=== PATIENT | male | born 1955 | race Caucasian/White ===

== ENCOUNTER 2016-10-11 03:05 | Emergency (ER) | payer OTHER ==
[~2016-10-11] VITALS: Ht 180.3 cm; Wt 104.3 kg
--- NOTE | 2016-10-11 03:20 | ED GI/GU/ABDOMINAL COMPLAINT ---
History of Present Illness General Chief Complaint: Abdominal Pain/Flank Pain Stated Complaint: LOWER ABD PAIN, FEVER, CHILLS, X 1 DAY Source: patient, family Exam Limitations: no limitations Vital Signs & Intake/Output Vital Signs & Intake/Output Vital Signs Date Time Temp Pulse Resp B/P B/P Pulse O2 O2 Flow FiO2 Mean Ox Delivery Rate 10/11 0404 96 Room Air 10/11 0316 97.5 80 18 127/75 95 Allergies Coded Allergies: cephalexin (From KEFLEX) (itchy 10/11/16) Reconcile Medications No Known Home Medications Triage Note: lower abd pain denies n,v,d normal bm DENIES URINARY SX Triage Nurses Notes Reviewed? yes HPI: Patient has had bilateral lower quadrant crampy pain since yesterday. The pain is escalating. Patient rates the pain at 7 out of 10. The pain is exacerbated with any movement or with walking. There is no nausea, vomiting, constipation or diarrhea. Patient had a normal bowel movement earlier today. Patient has noticed that his urine is darker than normal. There are no fevers or chills. The pain is constant. Patient also states that yesterday he had some chills but no fever that he is aware of. Past History Travel History Traveled to [place] past 21 day No Medical History Any Pertinent Medical History? none Neurological: NONE EENT: NONE Cardiovascular: NONE Respiratory: NONE Gastrointestinal: NONE Hepatic: NONE Renal: NONE Musculoskeletal: NONE Psychiatric: NONE Endocrine: NONE Blood Disorders: NONE Cancer(s): NONE Surgical History Surgical History: non-contributory Psychosocial History What is your primary language Khmer Tobacco Use: Never used ETOH Use: occasional use Illicit Drug Use: denies illicit drug use Family History Hx Contributory? No Review of Systems Review of Systems Constitutional: Reports: see HPI, chills. EENTM: Reports: no symptoms. Respiratory: Reports: no symptoms. Cardiovascular: Reports: no symptoms. GI: Reports: see HPI, abdominal pain. Genitourinary: Reports: see HPI. Musculoskeletal: Reports: no symptoms. Skin: Reports: no symptoms. Neurological/Psychological: Reports: no symptoms. Hematologic/Endocrine: Reports: no symptoms. Immunologic/Allergic: Reports: no symptoms. All Other Systems: Reviewed and Negative Physical Exam Physical Exam General Appearance: well developed/nourished, alert, awake, anxious, moderate distress Head: atraumatic, normal appearance Eyes: Bilateral: PERRL, EOMI. Ears, Nose, Throat, Mouth: hearing grossly normal, moist mucous membrane Neck: normal inspection, supple, full range of motion Respiratory: normal breath sounds, chest non-tender, no respiratory distress, lungs clear Cardiovascular: regular rate/rhythm, normal peripheral pulses Gastrointestinal: normal bowel sounds, soft, guarding, rebound, tenderness Back: normal inspection, normal range of motion Extremities: normal range of motion Neurologic/Psych: no motor/sensory deficits, awake, alert, oriented x 3, normal mood/affect Skin: intact, normal color, warm/dry Core Measures ACS in differential dx? No Severe Sepsis Present: No Septic Shock Present: No Progress Differential Diagnosis: appendicitis, bowel obstruction, diverticulitis, ischemic bowel, inflamm bowel dis, perforated viscous, SBO, urinary retention, UTI/pyelo Plan of Care: Orders Procedure Date/time Status URINALYSIS 10/11 325 Complete LIPASE 10/11 325 Complete COMPREHENSIVE METABOLIC PANEL 10/11 325 Complete CBC WITHOUT DIFFERENTIAL 10/11 325 Complete AMYLASE 10/11 325 Complete Current Medications Sig/Almita Start time Last Medication Dose Stop Time Status Admin Ampicillin Sodium/ 3,000 MG ONCE ONE 10/11 0530 UNVr Sulbactam Sodium 10/11 0559 (Unasyn) Sodium Chloride 100 ML (Normal Saline 0.9%) Laboratory Tests 10/11/16 0353: Anion Gap 10, Estimated GFR > 60, BUN/Creatinine Ratio 16.3, Glucose 191 H, Calcium 9.2, Total Bilirubin 1.0, AST 29, ALT 43, Alkaline Phosphatase 88, Total Protein 6.7, Albumin 4.0, Globulin 2.7, Albumin/Globulin Ratio 1.5, Amylase < 30 L, Lipase 36, CBC w Diff NO MAN DIFF REQ, RBC 4.64 L, MCV 86.8, MCH 30.0, RDW 13.0, MPV 6.8 L, Gran % 74.4, Lymphocytes % 17.0 L, Monocytes % 6.3, Eosinophils % 1.9, Basophils % 0.4, Absolute Granulocytes 8.7 H, Absolute Lymphocytes 2.0, Absolute Monocytes 0.7 H, Absolute Eosinophils 0.2, Absolute Basophils 0, PUBS MCHC 34.5 10/11/16 0346: Urinalysis LIGHT H, Urine Color YEL, Urine Clarity HAZY H, Urine pH 5.5, Ur Specific [place] >= 1.030, Urine Protein 30 H, Urine Ketones NEG, Urine Nitrite NEG, Urine Bilirubin NEG, Urine Urobilinogen 0.2, Ur Leukocyte Esterase NEG, Ur Microscopic SEDIMENT EXAMINED, Urine RBC 1-3, Urine WBC RARE, Ur Epithelial Cells RARE, Urine Bacteria FEW H, Urine Mucus FEW, Urine Hemoglobin SMALL H, Urine Glucose 100 H Diagnostic Imaging: Viewed by Me: CT Scan. Discussed w/RAD: CT Scan. Radiology Impression: PATIENT: POPPY HARRISON PRESENT AGE: 61 PATIENT ACCOUNT NO: [id number] : 59 LOCATION: [facility] ORDERING PHYSICIAN: OLINDA HUFFMAN MD SERVICE DATE: 10/11/16 EXAM TYPE: CAT - CT ABD & PELVIS W IV CONTRAST EXAMINATION: CT ABDOMEN AND PELVIS WITH CONTRAST CLINICAL INFORMATION: Bilateral lower quadrant pain with rebound and guarding. COMPARISON: None TECHNIQUE: Multidetector volumetric imaging was performed of the abdomen and pelvis before and after the IV administration of 95 mL of Optiray 320 intravenous contrast. Sagittal and coronal reformatted images were obtained on the technologist's workstation. DLP: 749 mGy-cm FINDINGS: LUNG BASES : Mild dependent atelectasis is present in the lower lobes. Central airways are clear. Calcifications are present on the aortic valve. LIVER, GALLBLADDER, AND BILIARY TREE: The liver is normal in size, shape, and attenuation. No focal hepatic lesion or biliary ductal dilatation is present. The gallbladder has a phrygian cap morphology. No evidence of radiopaque gallstones, gallbladder wall thickening, or obvious pericholecystic inflammatory changes. PANCREAS: Unremarkable. SPLEEN: Unremarkable. ADRENAL GLANDS: Unremarkable. KIDNEYS AND URETERS: A 4.3 cm water density (7 Hounsfield units) cyst is present in the lower pole left kidney. There is a 1.8 cm water density (14 Hounsfield units) cyst in the upper pole the right kidney. Smaller hypodensities are too small to characterize are likely correspond to simple cyst. Kidneys normal in size and contour with normal cortical thickness. No hydronephrosis or nephrolithiasis. Ureters are normal. BLADDER: Unremarkable. GASTROINTESTINAL TRACT: Stomach, small bowel, and colon are normal in caliber. There is moderate diffuse colonic diverticulosis. As seen on image 46/107 of series 602, there is colonic wall thickening and inflammation of the surrounding fat at a diverticulum in the sigmoid colon, consistent with acute diverticulitis. No evidence of perforation. No abscess formation. No intraperitoneal free fluid or free air. Appendix is normal. ABDOMINAL WALL: Small fat-containing umbilical hernia. No bowel involvement. LYMPH NODES: Normal. VASCULAR: Calcific atherosclerosis is present in the abdominal aorta and iliac arteries. PELVIC VISCERA: Prostate gland is unremarkable. OSSEOUS STRUCTURES: Mild degenerative disc disease in the lower thoracic spine. There is facet arthropathy throughout the lumbar spine. No acute osseous abnormalities. 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 IMPRESSION: 1. Acute diverticulitis of the sigmoid colon without evidence of abscess or perforation. 2. Simple renal cysts. 3. Small fat- containing umbilical hernia. DICTATED BY: JUDI FARAH MD DATE/TIME DICTATED:499 SEATING CAPTAIN:MARICHUY DATE/TIME TRANSCRIBED:10/11/16499 CONFIDENTIAL, DO NOT COPY WITHOUT APPROPRIATE AUTHORIZATION. <Electronically signed in Other Vendor System> SIGNED BY: JUDI FARAH MD 10/11/16 0511 Initial ED EKG: none Departure Departure Disposition: HOME OR SELF CARE Condition: Stable Clinical Impression Primary Impression: Diverticulitis Qualifiers: Diverticulitis site: large intestine Diverticulitis bleeding: without bleeding Diverticulitis complication: without perforation or abscess Qualified Code: K57.32 - Diverticulitis of large intestine without perforation or abscess without bleeding Additional Instructions: TAKE ANTIBIOTICS PRESCRIBED RETURN IF SYMPTOMS WORSEN, YOU DEVELOP FEVERS OR FOR ANY CONCERNS Departure Forms: Customer Survey General Discharge Information Prescriptions: Current Visit Scripts No Known Home Medications
[2016-10-11 04:07] LABS: ABSOLUTE BASOPHIL COUNT 0 /CUMM (0.0-0.2); ABSOLUTE EOSINOPHIL COUNT 0.2 /CUMM (0.0-0.7); ABSOLUTE GRANULOCYTE CT 8.7 /CUMM (1.4-6.5); ABSOLUTE MONOCYTE COUNT 0.7 /CUMM (0.10-0.60); BASOPHIL % 0.4 % (0.0-2.0); EOSINOPHIL % 1.9 % (0-5); GRANULOCYTE % 74.4 % (42.2-75.2); HEMATOCRIT 40.3 % (42-52); MEAN CORPUSCULAR HGB CONC 34.5 G/DL (33.0-37.0); MEAN CORPUSCULAR VOLUME 86.8 FL (80.0-94.0); MEAN PLATELET VOLUME 6.8 FL (7.4-10.4); PLATELET COUNT 162 /CUMM (130-400); RED BLOOD CELL CT 4.64 /CUMM (4.70-6.10); WHITE BLOOD CELL COUNT 11.6 /CUMM (4.8-10.8)
--- NOTE | 2016-10-11 05:11 | CT SCAN REPORT ---
EXAMINATION: CT ABDOMEN AND PELVIS WITH CONTRAST CLINICAL INFORMATION: Bilateral lower quadrant pain with rebound and guarding. COMPARISON: None TECHNIQUE: Multidetector volumetric imaging was performed of the abdomen and pelvis before and after the IV administration of 95 mL of Optiray 320 intravenous contrast. Sagittal and coronal reformatted images were obtained on the technologist's workstation. DLP: 749 mGy-cm FINDINGS: LUNG BASES: Mild dependent atelectasis is present in the lower lobes. Central airways are clear. Calcifications are present on the aortic valve. LIVER, GALLBLADDER, AND BILIARY TREE: The liver is normal in size, shape, and attenuation. No focal hepatic lesion or biliary ductal dilatation is present. The gallbladder has a phrygian cap morphology. No evidence of radiopaque gallstones, gallbladder wall thickening, or obvious pericholecystic inflammatory changes. PANCREAS: Unremarkable. SPLEEN: Unremarkable. ADRENAL GLANDS: Unremarkable. KIDNEYS AND URETERS: A 4.3 cm water density (7 Hounsfield units) cyst is present in the lower pole left kidney. There is a 1.8 cm water density (14 Hounsfield units) cyst in the upper pole the right kidney. Smaller hypodensities are too small to characterize are likely correspond to simple cyst. Kidneys normal in size and contour with normal cortical thickness. No hydronephrosis or nephrolithiasis. Ureters are normal. BLADDER: Unremarkable. GASTROINTESTINAL TRACT: Stomach, small bowel, and colon are normal in caliber. There is moderate diffuse colonic diverticulosis. As seen on image 46/107 of series 602, there is colonic wall thickening and inflammation of the surrounding fat at a diverticulum in the sigmoid colon, consistent with acute diverticulitis. No evidence of perforation. No abscess formation. No intraperitoneal free fluid or free air. Appendix is normal. ABDOMINAL WALL: Small fat-containing umbilical hernia. No bowel involvement. LYMPH NODES: Normal. VASCULAR: Calcific atherosclerosis is present in the abdominal aorta and iliac arteries. PELVIC VISCERA: Prostate gland is unremarkable. OSSEOUS STRUCTURES: Mild degenerative disc disease in the lower thoracic spine. There is facet arthropathy throughout the lumbar spine. No acute osseous abnormalities. 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 IMPRESSION: 1. Acute diverticulitis of the sigmoid colon without evidence of abscess or perforation. 2. Simple renal cysts. 3. Small fat-containing umbilical hernia.
[2016-10-11 05:23] VITALS: BP 124/69
== END 2016-10-11 05:39 ==
LOC: ERH 03:05
PROVIDERS: Emergency Medicine
DX: K57.92 Diverticulitis of intestine, part unspecified, without perforation or abscess without bleeding (principal)
CPT/HCPCS: 74177; 81001; 96374; 96375; J1885

== ENCOUNTER 2016-10-18 11:02 | Inpatient (IN) | payer OTHER ==
[~2016-10-18] VITALS: Ht 180.3 cm; Wt 104.3 kg
--- NOTE | 2016-10-18 11:08 | NUR ---
61 Y/O MALE C/O LOWER ABDOMINAL PAIN SINCE YESTERDAY. DIAGNOSED WITH DIVERTICULITIS LAST WEEK AND HAS BEEN TAKING ANTIBIOTICS DIRECTED (LAST DOSE THIS AM). STATES HE WAS DOING OK UNTIL PAIN RETURNED. DENIES N/V/D BUT REPORTS DECREASED APPETITE. SINCE ONSET OF PAIN, PAIN GRADUALLY IMPROVING TODAY PER PT. AFEBRILE
--- NOTE | 2016-10-18 11:33 | NUR ---
PT AMB TO ROOM 17, CHANGED INTO HOSPITAL GOWN, NURSING CARE ASSUMEND. JORDON ORR TO BEDSIDE FOR PT EVAL.
--- NOTE | 2016-10-18 12:02 | NUR ---
BLOOD DRAWN AND SENT -SST,LIDIA,SUSANA CLINE. IV EST. PT MEDICATED WITH TORADOL PER EMAR. NS INFUSING PER EMAR.
[2016-10-18 12:11] LABS: ABSOLUTE BASOPHIL COUNT 0 /CUMM (0.0-0.2); ABSOLUTE EOSINOPHIL COUNT 0 /CUMM (0.0-0.7); ABSOLUTE GRANULOCYTE CT 11.3 /CUMM (1.4-6.5); ABSOLUTE LYMPH COUNT 1.6 /CUMM (1.2-3.4); ABSOLUTE MONOCYTE COUNT 0.9 /CUMM (0.10-0.60); BASOPHIL % 0.2 % (0.0-2.0); EOSINOPHIL % 0.2 % (0-5); GRANULOCYTE % 81.7 % (42.2-75.2); HEMATOCRIT 39.8 % (42-52); MEAN CORPUSCULAR HGB 30.1 PG (27.0-31.0); MEAN CORPUSCULAR HGB CONC 34.8 G/DL (33.0-37.0); MEAN CORPUSCULAR VOLUME 86.4 FL (80.0-94.0); MEAN PLATELET VOLUME 6.4 FL (7.4-10.4); PLATELET COUNT 206 /CUMM (130-400); RBC DISTRIBUTION WIDTH 12.3 % (11.5-14.5); WHITE BLOOD CELL COUNT 13.9 /CUMM (4.8-10.8)
--- NOTE | 2016-10-18 12:37 | NUR ---
PT TO CAT SCAN BY STRETCHER.
--- NOTE | 2016-10-18 12:58 | NUR ---
PT RETURNED FROM CT, AWAITING RESULTS.
--- NOTE | 2016-10-18 13:04 | NUR ---
URINE TRIO SENT TO LAB.
--- NOTE | 2016-10-18 13:13 | NUR ---
PT STILL REPORTS LOWER ABD PAIN. MADE AWARE, PT MEDICATED WITH MORPHINE PER EMAR.
--- NOTE | 2016-10-18 13:22 | CT SCAN REPORT ---
EXAMINATION: CT ABDOMEN AND PELVIS WITH CONTRAST CLINICAL INFORMATION: Abdominal pain and fever. Chills. Recent treatment with antibiotics. COMPARISON: 10/11/2016 TECHNIQUE: Multidetector volumetric imaging was performed of the abdomen and pelvis following IV administration of 95 mL of Optiray 320 intravenous contrast. Sagittal and coronal reformatted images were obtained on the technologist's workstation. DLP: 540 mGy-cm FINDINGS: LUNG BASES: Minimal basilar atelectasis. Coronary artery calcifications. LIVER, GALLBLADDER, AND BILIARY TREE: The liver is normal in size, shape, and attenuation. No focal hepatic lesion or biliary ductal dilatation is present. The gallbladder is unremarkable with no evidence of radiopaque gallstones, gallbladder wall thickening, or obvious pericholecystic inflammatory changes. PANCREAS: Unremarkable. SPLEEN: Unremarkable. ADRENAL GLANDS: Unremarkable. KIDNEYS AND URETERS: The kidneys are normal in size, shape, and attenuation. No hydronephrosis, hydroureter, or calculi seen. No perinephric stranding. Left midpole simple cyst again noted. Right upper pole simple cyst again noted. Additional too small to characterize lesions are again seen. BLADDER: Unremarkable. GASTROINTESTINAL TRACT: The stomach and small bowel are unremarkable. No dilated loops of bowel or evidence of obstruction. There is colonic diverticulosis. There is persistent wall thickening with increased inflammatory changes at the region of the sigmoid colon, consistent with continued diverticulitis. No free air or fluid collection. Normal appendix. ABDOMINAL WALL: Small fat-containing umbilical hernia. LYMPH NODES: Normal. VASCULAR: Mild atherosclerotic calcifications. PELVIC VISCERA: The prostate and seminal vesicles are unremarkable. OSSEOUS STRUCTURES: No acute or suspicious osseous abnormality. Mild degenerative changes of the spine. IMPRESSION: 1. Uncomplicated sigmoid diverticulitis is again noted with mildly increased inflammation when compared to the study one week ago. No fluid collection or free air. 2. Simple renal cysts, unchanged.
[2016-10-18] MEDS ORDERED: TRAMADOL HCL50 M1 PO (13:40)
[2016-10-18] MEDS ORDERED: MULTI-DAY VITA1 EACH PO (13:40)
[2016-10-18] MEDS ORDERED: OSTEO BI-FLEX1 EACH PO (13:41)
[2016-10-18] MEDS ORDERED: VITAMIN B COMP1 EACH PO (13:41)
--- NOTE | 2016-10-18 14:18 | ED GENERAL ADULT ---
See Addendum History of Present Illness General Chief Complaint: Abdominal Pain/Flank Pain Stated Complaint: ABD PAIN SINCE YESTERDAY Source: patient, family Exam Limitations: no limitations Vital Signs & Intake/Output Vital Signs & Intake/Output Vital Signs Date Time Temp Pulse Resp B/P B/P Pulse O2 O2 Flow FiO2 Mean Ox Delivery Rate 10/18 1543 98.4 72 18 131/61 97 Room Air 10/18 1347 98.3 69 18 104/56 98 Room Air 10/18 1106 96.3 92 18 123/75 96 Allergies Coded Allergies: cephalexin (From KEFLEX) (SEVERE ITCHY HIVES 10/18/16) Triage Note: 61 Y/O MALE C/O LOWER ABDOMINAL PAIN SINCE YESTERDAY. DIAGNOSED WITH DIVERTICULITIS LAST WEEK AND HAS BEEN TAKING ANTIBIOTICS DIRECTED (LAST DOSE THIS AM). STATES HE WAS DOING OK UNTIL PAIN RETURNED. DENIES N/V/D BUT REPORTS DECREASED APPETITE. SINCE ONSET OF PAIN, PAIN GRADUALLY IMPROVING TODAY PER PT. AFEBRILE Triage Nurses Notes Reviewed? yes HPI: Mr. Ram is 61 year old male with past medical history significant for arthritis and recent acute diverticulitis treated with Augmentin who presented to ED today complaining of lower abdominal pain for 1 day. Patient was diagnosed with acute diverticulitis on October 11 and was prescribed Augmentin, last dose was this morning. Patient reported severe lower abdominal pain that started yesterday associated with fever, chills, nausea but no vomiting. Denied any diarrhea, constipation, last bowel movement was yesterday of normal stool with no visible blood. Denied dysuria. Patient reported compliance with antibiotic, 2 days ago started to take had Ultram that was prescribed by his orthopedic surgeon for arthritis. Patient had recent lab works at orthopedic surgeon office that was obtained (in patient's chart) revealed elevated rheumatoid factor and C-reactive protein. (JORDON ORR,[facility]) Reconcile Medications Glucosamine HCl/Chondr Vásquez A Na (Osteo Bi-Flex Caplet) (Unknown Strength) TABLET (Unknown Dose) PO DAILY SUPPLEMENT (Reported) Multivitamin (Multi-Day Vitamins) 1 EACH TABLET 1 TAB PO DAILY SUPPLEMENT ( Reported) Tramadol HCl 50 MG TABLET 1 TAB PO Q6P PRN PAIN (Reported) Vitamin B Complex 1 EACH CAPSULE 1 CAP PO DAILY SUPPLEMENT (Reported) (BONNIE ROY MD) Past History Travel History Traveled to [place] past 21 day No Medical History Any Pertinent Medical History? see below for history Neurological: NONE EENT: NONE Cardiovascular: NONE Respiratory: NONE Gastrointestinal: NONE Hepatic: NONE Renal: NONE Musculoskeletal: NONE Psychiatric: NONE Endocrine: NONE Blood Disorders: NONE Cancer(s): NONE Surgical History Surgical History: non-contributory Psychosocial History What is your primary language Jamaican Tobacco Use: Never used Family History Hx Contributory? Yes (JORDON ORR,[facility]) Review of Systems Review of Systems Constitutional: Reports: chills, fever, malaise. EENTM: Denies: blurred vision, visual changes, hearing changes, nasal congestion. Respiratory: Denies: cough, short of breath, sputum production, stridor, wheezing. Cardiovascular: Denies: chest pain, palpitations, peripheral edema. GI: Reports: abdominal pain, nausea. Denies: constipation, diarrhea, distention, bloody stool, changes in stool, vomiting. Genitourinary: Denies: dysuria, hematuria. Musculoskeletal: Reports: joint pain. Denies: back pain, joint swelling, muscle pain, muscle stiffness. Skin: Denies: change in skin color, change in hair/nails. (JORDON ORR,[facility]) Review of Systems Neurological/Psychological: Reports: no symptoms. Hematologic/Endocrine: Reports: no symptoms. Immunologic/Allergic: Reports: no symptoms. All Other Systems: Reviewed and Negative (BONNIE ROY MD) Physical Exam Physical Exam General Appearance: well developed/nourished, alert, awake, mild distress Head: atraumatic, normal appearance Eyes: Bilateral: normal appearance, PERRL, EOMI. Ears, Nose, Throat: normal pharynx, normal ENT inspection, hearing grossly normal Neck: normal inspection, supple, full range of motion Respiratory: normal breath sounds, chest non-tender, no respiratory distress Cardiovascular: regular rate/rhythm Gastrointestinal: normal bowel sounds, soft, tenderness, LLQ tenderness, no gaurding Back: normal inspection, normal range of motion Extremities: normal inspection, normal capillary refill, normal range of motion, no edema Neurologic/Psych: no motor/sensory deficits, awake, alert, oriented x 3 Core Measures ACS in differential dx? No CVA/TIA Diagnosis: No Severe Sepsis Present: No Septic Shock Present: No (JORDON ORR,[facility]) Physical Exam Peripheral Pulses: 4+ carotid (R), 4+ carotid (L) Reflexes: 2+: bicep (R), bicep (L). Skin: intact, normal color, warm/dry Lymphatic: no anterior cervical prasanth (HIPONA ,BONNIE) Progress Differential Diagnoses I considered the following diagnoses in my evaluation of the patient: [ Diverticulitis, kidney stone, musculoskeletal, gastroenteritis] Plan of Care: Orders Procedure Date/time Status Regular Diet 10/18 D Active Pathway - chart 10/18 1530 Active Pathway - chart 10/18 1528 Active House Staff 10/18 1528 Active Patient Data 10/18 1528 Active Code Status 10/18 1528 Active Patient Data 10/18 1435 Active BLOOD CULTURE 10/18 1409 Active OXYGEN SETUP (GEN) 10/18 1340 Active Saline Lock 10/18 1340 Active Admit to inpatient 10/18 1340 Active Vital Signs 10/18 1340 Active Activity/Ambulation 10/18 1340 Active Code Status 10/18 1340 Complete Intake & Output 10/18 1237 Active URINALYSIS 10/18 1150 Complete CBC WITHOUT DIFFERENTIAL 10/18 1150 Complete BASIC ELECTROLYTES PLUS BUN&CR 10/18 1150 Complete VTE Mechanical Prophylaxis 10/18 UNK Active Current Medications Sig/Almita Start time Last Medication Dose Stop Time Status Admin Bisacodyl 5 MG DAILY 10/19 1000 AC (Dulcolax) Cyanocobalamin 1,000 MCG DAILY 10/19 1000 AC (Vitamin B12) Multivitamins 1 TAB DAILY 10/19 1000 AC Therapeutic (Theragran-M Vitamins Tabs) Senna 187 MG AT BEDTIME 10/18 2200 AC (Senokot) Clindamycin 600 MG IQ8 10/18 1600 AC 10/18 (Cleocin) 1517 Dextrose/Water 50 ML (D5W) Metronidazole 500 MG IQ8 10/18 1600 CAN (Flagyl) N/A 1 UNIT (No Carrier) Non-Formulary 0 SEE ADMIN CRITERIA 10/18 1545 UNVr Medication (NON FORMULARY) Tramadol HCl 50 MG Q6P PRN 10/18 1545 AC (Ultram) Docusate Sodium 100 MG BID 10/18 1540 AC (Colace) Acetaminophen 650 MG Q6P PRN 10/18 1530 AC (Tylenol) Morphine Sulfate 4 MG Q4P PRN 10/18 1530 AC (Morphine) Oxycodone/ 1 TAB Q6P PRN 10/18 1530 AC Acetaminophen (Percocet) Enoxaparin Sodium 40 MG DAILY 10/18 1527 AC (Lovenox) Diphenhydramine HCl 25 MG ONCE ONE 10/18 1415 CAN (Benadryl) 10/18 1416 Laboratory Tests 10/18/16 1301: Urine Color STRAW, Urine Clarity CLEAR, Urine pH 6.0, Ur Specific [place] <= 1.005, Urine Protein NEG, Urine Ketones NEG, Urine Nitrite NEG, Urine Bilirubin NEG, Urine Urobilinogen 0.2, Ur Leukocyte Esterase NEG, Ur Microscopic EXAM NOT REQUIRED, Urine Hemoglobin NEG, Urine Glucose NEG 10/18/16 1200: Anion Gap 9, Estimated GFR > 60, BUN/Creatinine Ratio 16.3, CBC w Diff NO MAN DIFF REQ, RBC 4.60 L, MCV 86.4, MCH 30.1, RDW 12.3, MPV 6.4 L, Gran % 81.7 H, Lymphocytes % 11.5 L, Monocytes % 6.4, Eosinophils % 0.2, Basophils % 0.2, Absolute Granulocytes 11.3 H, Absolute Lymphocytes 1.6, Absolute Monocytes 0.9 H, Absolute Eosinophils 0, Absolute Basophils 0, PUBS MCHC 34.8 Microbiology 10/18 1505 BLOOD: Blood Culture - RECD 10/18 1450 BLOOD: Blood Culture - RECD Initial ED EKG: none (JORDON ORR,[facility]) Differential Diagnoses I considered the following diagnoses in my evaluation of the patient: (KIRILL ORR,BONNIE) Departure Departure Disposition: STILL A PATIENT Condition: Stable Clinical Impression Primary Impression: Acute diverticulitis Referrals: PATIENT HAS NO PRIMARY CARE DR (PCP/Family) Departure Forms: Customer Survey General Discharge Information Comments -CBC, BMP, UA, CT abdomen with IV contrast -CBC is positive for leukocytosis 13.9 -CT abdomen and pelvis with IV contrast revealed uncomplicated sigmoid diverticulitis is again noted with mildly increased inflammation when compared to the study one week ago. No fluid collection or free air -Patient failed outpatient management of acute diverticulitis with Unasyn/ Augmentin -Blood culture was drawn -Will start IV ceftriaxone and metronidazole (patient reported hives as a reaction to Keflex, will give Benadryl prior to ceftriaxone with close monitoring) (JORDON ORRYVAN) Admission Note Spoke With: GUERO BARRIENTOS MD Documentation of Exam: Documentation of any treatments & extenuating circumstances including Concerns Regarding Discharge (functional status, medication knowledge or non-compliance, living conditions, etc.) that warrant an admission rather than observation: Failure of outpatient treatment requiring IV antibiotics serial lab exam follow cultures GI evaluation medication adjustment continuing care discharge planning Resident Co-Sign Statement Statement: ED Attending supervision documentation- x I saw and evaluated the patient. I have also reviewed all the pertinent lab results and diagnostic results. I agree with the findings and the plan of care as documented in the Resident's documentation. [] I have reviewed the ED Record and agree with the Resident's documentation. [] Additions or exceptions (if any) to the Resident's note and plan are summarized below: [] (KIRILL ORR,BONNIE) Critical Care Note Critical Care Note Critical Care Time: non-applicable (YVAN RUVALCABA MD)
--- NOTE | 2016-10-18 14:54 | History & Physical ---
FLYNN ORR,[facility] 10/18/16 1453: General Information and HPI MD Statement: I have seen and personally examined POPPY RAM and documented this H&P. The patient is a 61 year old M who presented with a patient stated chief complaint of [abdominal pain]. Source of Information: patient Exam Limitations: no limitations History of Present Illness: Mr Ram is a 61-year-old gentleman with a PMH of osteoarthritis, chronic pain, torn left knee meniscus, torn left rotator cuff, previous history of thyroid nodule, left tibiofibular fracture who presents with complaints of abdominal pain after a recent diagnosis of diverticulitis. According to the patient during lunchtime at work he experienced sudden onset stabbing abdominal pain localized to left lower quadrant. Pain was constant in nature, 6/10 in intensity and exacerbatted by movement and deep breathing. Patient also reports one episode of chills,anorexia and some nausea but denies any vomiting, diarrhea or bloody stools. Patient was recently diagnosed with uncomplicated diverticulitis, started on Augmentin 875 mg PO BID with improvement in his symptoms back to baseline except from minimal andominal discomfort. He also sees an orthopedic physician who started him on Ultram for joint pain on 10/14/2016. Allergies/Medications Allergies: Coded Allergies: cephalexin (From KEFLEX) (SEVERE ITCHY HIVES 10/18/16) Home Med list Glucosamine HCl/Chondr Vásquez A Na (Osteo Bi-Flex Caplet) (Unknown Strength) TABLET (Unknown Dose) PO DAILY SUPPLEMENT (Reported) Multivitamin (Multi-Day Vitamins) 1 EACH TABLET 1 TAB PO DAILY SUPPLEMENT ( Reported) Tramadol HCl 50 MG TABLET 1 TAB PO Q6P PRN PAIN (Reported) Vitamin B Complex 1 EACH CAPSULE 1 CAP PO DAILY SUPPLEMENT (Reported) Past History Travel History Traveled to [place] past 21 day No Medical History Neurological: NONE EENT: NONE Cardiovascular: NONE Respiratory: NONE Gastrointestinal: NONE Hepatic: NONE Renal: NONE Musculoskeletal: NONE Psychiatric: NONE Endocrine: NONE Blood Disorders: NONE Cancer(s): NONE Surgical History Surgical History: non-contributory Review of Systems Review of Systems Constitutional: Reports: no symptoms. EENTM: Reports: no symptoms. Cardiovascular: Reports: no symptoms. Respiratory: Reports: no symptoms. GI: Reports: see HPI. Genitourinary: Reports: no symptoms. Musculoskeletal: Reports: no symptoms. Skin: Reports: no symptoms. Neurological/Psychological: Reports: no symptoms. Hematologic/Endocrine: Reports: no symptoms. Immunologic/Allergic: Reports: no symptoms. All Other Systems: Reviewed and Negative Exam & Diagnostic Data Last 24 Hrs of Vital Signs/I&O Vital Signs Date Time Temp Pulse Resp B/P B/P Pulse O2 O2 Flow FiO2 Mean Ox Delivery Rate 10/18 1619 97.9 94 19 124/62 97 Room Air 10/18 1543 98.4 72 18 131/61 97 Room Air 10/18 1347 98.3 69 18 104/56 98 Room Air 10/18 1106 96.3 92 18 123/75 96 Intake & Output 10/18 1600 10/18 0800 10/18 0000 Intake Total 1000 Output Total Balance 1000 Intake, IV 1000 Patient 230 lb Weight Weight Reported by Patient Measurement Method Physical Exam General Appearance Alert, Oriented X3, Cooperative, No Acute Distress Skin No Rashes, No Breakdown Sepsis Skin Exam (color): Normal for Ethnicity HEENT Atraumatic, PERRLA, EOMI, Mucous Membr. moist/pink Neck Supple, No JVD, No thryomegaly Cardiovascular Regular Rate, Normal S1, Normal S2, No Murmurs Lungs Clear to Auscultation, Normal Air Movement Abdomen Normal Bowel Sounds, Soft, No Hepatospenomegaly, No Masses, Tenderness in LLQ Neurological Normal Gait, Normal Speech, Strength at 5/5 X4 Ext, Normal Tone, Sensation Intact Extremities No Clubbing, No Cyanosis, No Edema, Normal Pulses Last 24 Hrs of Labs/Darrin: Laboratory Tests 10/18/16 1301: Urine Color STRAW, Urine Clarity CLEAR, Urine pH 6.0, Ur Specific [place] <= 1.005, Urine Protein NEG, Urine Ketones NEG, Urine Nitrite NEG, Urine Bilirubin NEG, Urine Urobilinogen 0.2, Ur Leukocyte Esterase NEG, Ur Microscopic EXAM NOT REQUIRED, Urine Hemoglobin NEG, Urine Glucose NEG 10/18/16 1200: Anion Gap 9, Estimated GFR > 60, BUN/Creatinine Ratio 16.3, Iron < 10 L, TIBC 321, Ferritin 266.0, 25-OH Vitamin D Total 20.0 L, CBC w Diff NO MAN DIFF REQ, RBC 4.60 L, MCV 86.4, MCH 30.1, RDW 12.3, MPV 6.4 L, Gran % 81.7 H, Lymphocytes % 11.5 L, Monocytes % 6.4, Eosinophils % 0.2, Basophils % 0.2, Absolute Granulocytes 11.3 H, Absolute Lymphocytes 1.6, Absolute Monocytes 0.9 H, Absolute Eosinophils 0, Absolute Basophils 0, PUBS MCHC 34.8 Microbiology 10/18 1505 BLOOD: Blood Culture - RECD 10/18 1450 BLOOD: Blood Culture - RECD Assessment/Plan Assessment: Mr Ram is a 61-year-old gentleman with a PMH of osteoarthritis, chronic pain, torn left knee meniscus, torn left rotator cuff, previous history of thyroid nodule, left tibiofibular fracture who presents with complaints of abdominal pain after a recent diagnosis of diverticulitis.uncomplicated recurrent diverticulitis. Assessment and plan: Abdominal Pain: * Most likely recurrent acute diverticulitis. * Clear liquids, advance as tolerated * Patient has a history of hives secondary to cephalosporin. Patient declined pretreatment with Benadryl. We'll start the patient on clindamycin, monitor for symptomatic improvement * Follow-up blood cultures for evidence of bacteremia * If clinical worsening, will obtain lactic acid and consider repeat CT with contrast for possibility of abscess * Analgesia with 4 mg morphine IV Q4 PRN. * Senna, Colace as bowel regiment * Continue with Osteo Bi-Flex and Ultram for chronic osteoarthritis DVT prophylaxis: Lovenox 40 mg subcutaneous daily Full code As Ranked By This Provider Problem List: 1. Diverticulitis Core Measures/Miscellaneous Acute Coronary Syndrome ACS Diagnosis: No Cerebrovascular Accident CVA/TIA Diagnosis: No Congestive Heart Failure CHF Diagnosis: No VTE (View Protocol) VTE Risk Factors: Acute medical illness, Age > 40 [facility] prophylaxis d/t: No contraindications No VTE Pharm Prophylaxis d/t: No contraindications VTE Diagnosis: No VTE Type: NONE VTE Confirmed by (Test): NONE Sepsis (View Protocol) Severe Sepsis Present: No Septic Shock Septic Shock Present: No Miscellaneous Documentation Attending Case Discussed With: ARRON ORR,KANG Neal Primary Care Physician: PATIENT HAS NO PRIMARY CARE DR Patient sees these Specialists . Level of Patient Care: General Medicine PASTOR ZHAO 10/18/16 1550: Resident Review Statement Resident Statement: examined this patient, discussed with senior internal auditor, agreed with senior internal auditor, discussed with family, reviewed EMR data (avail), discussed with nursing , reviewed images Other Findings: Mr Ram is a 61-year-old gentleman with a PMH of osteoarthritis, chronic pain, torn left knee meniscus, torn left rotator cuff, previous history of thyroid nodule, left tibiofibular fracture who presents with complaints of abdominal pain after a recent diagnosis of diverticulitis. The patient was last seen at [facility] on 10/11/2016 with complaints of lower abdominal/left lower quadrant stabbing pain, diagnosed with uncomplicated diverticulitis, started on Augmentin 875 mg PO BID which she has been compliant on. He also sees an orthopedic physician who started him on Ultram for joint pain on 10/14/2016. Since his previous ER visit, he reports being comfortable to go about his daily activities and work with minimal abdominal discomfort. He denies any fevers, chills, nausea, vomiting, diarrhea or bloody stools. He reports recurrence of abdominal pain on Monday afternoon similar nature localized around the LLQ, stabbing in nature, mild nausea, decreased appetite, pain worsened with movement, deep breathing and standing upright. He reports episodes of chills yesterday evening. VS on admission: BP 123/75, HR 92, RR 18, SPO2 96% on RA, T 96.3 Physical exam findings admission: Patient is alert and in mild discomfort. RRR, normal S1/S2 with a systolic murmur. Lungs CTA BL. Normal bowel sounds with tenderness to palpation of left lower quadrant greater than right lower quadrant , negative rebound. Pertinent labs at admission: WBC 13.9, H&H 13.9/30.8, 206K, sodium 136, potassium 3.8, bicarbonate 16, chloride 102, BUN/Cr 13/0.8 CT abdomen pelvis: Uncomplicated sigmoid diverticulitis is again noted with mildly increased inflammation when compared to the study one week ago. No fluid collection or free air. Simple renal cysts, unchanged. Problem list: 1. Uncomplicated diverticulitis 2. Abdominal pain 3. Osteoarthritis Plan: * Full admission to general medicine for management of uncomplicated recurrent diverticulitis * Clear liquids, advance as tolerated * Patient has a history of hives secondary to cephalosporin. Patient declined pretreatment with Benadryl. We'll start the patient on clindamycin, monitor for symptomatic improvement * Follow-up blood cultures for evidence of bacteremia * If clinical worsening, will obtain lactic acid and consider repeat CT with contrast for possibility of abscess * Analgesia with 4 mg morphine IV Q4 PRN. * Senna, Colace as bowel regiment * Continue with Osteo Bi-Flex and Ultram for chronic osteoarthritis * NB: Patient was previously on aspirin 325 mg for many years for his joint pain. If any evidence of dyspepsia/concern for peptic ulcers, would consider starting him on amlodipine or omeprazole * DVT prophylaxis: Lovenox 40 mg subcutaneous daily * Full code ARRONKANG 10/19/16 1646: Attending MD Review Statement Attending Statement Attending MD Statement: examined this patient, discuss w/resident/PA/VACUUM TANK TENDER, agreed w/resident/PA/VACUUM TANK TENDER, discussed with family, reviewed EMR data (avail), discussed with nursing Attending Assessment/Plan: please see my separate attending note for more details.
--- NOTE | 2016-10-18 15:05 | NUR ---
HOSE STAFF AT BEDSIDE FOR PT EVAL
--- NOTE | 2016-10-18 15:35 | NUR ---
PT TO ROOM 215 BED 1
--- NOTE | 2016-10-18 15:50 | NUR ---
CLEAR LIQUID TRAY PROVIDED TO PT.
--- NOTE | 2016-10-18 16:02 | NUR ---
REPORT GIVEN TO TOMASA ONEIL TO 2NB
[2016-10-18 16:19] VITALS: BP 124/62
--- NOTE | 2016-10-18 16:51 | Admission Certification ---
Admission Certification Certification Statement - As attending physician, I certify that at the time of - admission, based on clinical presentation, severity of - symptoms, need for further diagnostic testing and - therapeutic interventions, and risk of adverse outcomes - without in-hospital treatment, in my clinical assessment, - this patient requires an acute hospital stay for a minimum - of two nights or longer. I have also considered psychsocial - factors such as support system, advanced age, financial - issues, cognitive issues, and failed out-patient treatments, - past re-admission history, safety of patient, and lack of - compliance as applicable. Specific rationale supporting this admission is: acute diverticulitis
--- NOTE | 2016-10-18 16:56 | PN- Att Addend ---
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 Pt was recently seen in ER at [facility] on 10/11/2016 with complaints of lower abdominal/left lower quadrant stabbing pain, diagnosed with uncomplicated diverticulitis, started on Augmentin 875 mg PO BID . Pt reported recurrence of abdominal pain on Monday afternoon in suprapubic and LLQ area. On exam has tenderness to palpation in suprapubic and LLQ. He reports episodes of chills yesterday evening. Denies any diarrhea. Acute diverticulitis with failed outpt treatment. will start on ceftriaxone and flagyl. will see how he does. d/w pt and pts family at bedside the care plan.
--- NOTE | 2016-10-18 18:56 | NUR ---
PATIENT ARRIVED TO FLOOR FROM ER AT 1610, DX DIVERTICULOSIS VS 97.9 94 19 124/62 97% ROOM AIR. A&OX3, LCTA, INDEPENDENT. URINAL AT BEDSIDE. SKIN INTACT. IV #20 TO RH WITH D5NS @ 75 ML/HR RUNNING. C/O PAIN 7/10 TO LOWER ABD, MEDICATED WITH MORPHINE. ORIENTED TO ROOM AND CALL RUSS, SAFETY MAINTAINED, NEEDS WITHIN REACH.
[2016-10-18 22:10] VITALS: BP 79/36
[2016-10-18 22:12] VITALS: BP 80/50
--- NOTE | 2016-10-18 22:18 | NUR ---
BP TAKEN BY MST-100/42 CHECKED BY THIS RN, AUTO CUFF-79/36 CHECKED BY THIS RN, MANUALLY-80/50 COPY OPERATOR OLINDA GOTTI NOTIFIED
[2016-10-19 06:39] VITALS: BP 110/60
[2016-10-19 08:16] LABS: ABSOLUTE BASOPHIL COUNT 0 /CUMM (0.0-0.2); ABSOLUTE EOSINOPHIL COUNT 0 /CUMM (0.0-0.7); ABSOLUTE GRANULOCYTE CT 10.1 /CUMM (1.4-6.5); ABSOLUTE MONOCYTE COUNT 0.7 /CUMM (0.10-0.60); BASOPHIL % 0.3 % (0.0-2.0); EOSINOPHIL % 0.3 % (0-5); GRANULOCYTE % 78.1 % (42.2-75.2); HEMATOCRIT 38.3 % (42-52); MEAN CORPUSCULAR HGB 29.7 PG (27.0-31.0); MEAN CORPUSCULAR HGB CONC 33.7 G/DL (33.0-37.0); MEAN CORPUSCULAR VOLUME 88.1 FL (80.0-94.0); MEAN PLATELET VOLUME 6.9 FL (7.4-10.4); PLATELET COUNT 180 /CUMM (130-400); RBC DISTRIBUTION WIDTH 12.9 % (11.5-14.5); RED BLOOD CELL CT 4.35 /CUMM (4.70-6.10); WHITE BLOOD CELL COUNT 12.9 /CUMM (4.8-10.8)
--- NOTE | 2016-10-19 14:24 | PN- Att Addend ---
Attending MD Review Statement Attending Statement Attending MD Statement: examined this patient, discuss w/resident/PA/MANAGER EVENT, agreed w/resident/PA/MANAGER EVENT, reviewed EMR data (avail), discussed w/nursing, discussed w/ case mgmt Attending Assessment/Plan: Acute diverticulitis in pt with failed outpt treatment- started on cipro and flagyl iv. dced iv clindamycin. d/w pt and pts family at bedside the care plan.
--- NOTE | 2016-10-19 14:27 | PN- Housestaff ---
Subjective Follow-up For: Diverticulitis Subjective: Patient was in pain when I went to see him this morning. Also complains of no appetite. denies any fevers,chills, vomiting, shortness of breath or overnight events. Review of Systems Constitutional: Reports: no symptoms. EENTM: Reports: no symptoms. Cardiovascular: Reports: no symptoms. Respiratory: Reports: no symptoms. Gastrointestinal: Reports: see HPI. Genitourinary: Reports: no symptoms. Musculoskeletal: Reports: no symptoms. Skin: Reports: no symptoms. Neurological/Psychological: Reports: no symptoms. Hematologic/Endocrine: Reports: no symptoms. Immunologic/Allergic: Reports: no symptoms. Objective Last 24 Hrs of Vital Signs/I&O Vital Signs Date Time Temp Pulse Resp B/P B/P Pulse O2 O2 Flow FiO2 Mean Ox Delivery Rate 10/19 1447 99.5 75 20 118/68 94 Room Air 10/19 0639 98.9 80 20 110/60 94 Room Air 10/18 2212 80/50 10/18 2210 79/36 10/18 2016 98.9 Intake & Output 10/19 1600 10/19 0800 10/19 0000 Intake Total 1999 800 968 Output Total 220 350 Balance 1999 580 618 Intake, IV 800 800 488 Intake, Oral 1200 480 Number 2 Bowel Movements Output, Urine 220 350 Patient 230 lb Weight Weight Reported by Patient Measurement Method Physical Exam General Appearance: Alert, Oriented X3, Cooperative Skin: No Rashes, No Breakdown HEENT: Atraumatic, PERRLA, EOMI, Mucous Membr. moist/pink Cardiovascular: Regular Rate, Normal S1, Normal S2, No Murmurs Lungs: Clear to Auscultation, Normal Air Movement Abdomen: Normal Bowel Sounds, Soft, No Hepatospenomegaly, No Masses, tenderness in left lower quadrant. Current Medications: Current Medications Sig/Almit[place] Start time Last Medication Dose Route Stop Time Status Admin Acetaminophen 650 MG Q6P PRN 10/18 1530 AC PO Bisacodyl 5 MG DAILY 10/19 1000 AC 10/19 PO 1028 Ciprofloxacin 400 MG Q12 10/19 1042 AC 10/19 Dextrose/Water 200 ML IV 1327 Clindamycin 600 MG IQ8 10/18 1600 DC 10/19 Dextrose/Water 50 ML IV 0104 Cyanocobalamin 1,000 MCG DAILY 10/19 1000 AC 10/19 PO 1028 Dextrose/Sodium 1,000 ML Q13H 10/18 1600 AC 10/19 Chloride IV 0451 Docusate Sodium 100 MG BID 10/18 1540 AC 10/19 PO 1028 Enoxaparin Sodium 40 MG DAILY 10/18 1527 AC 10/19 SC 1029 Metoclopramide HCl 10 MG Q6P PRN 10/19 0715 AC IV Metoclopramide HCl 10 MG ONCE ONE 10/18 2115 DC 10/18 IV 10/18 211 2111 Metoclopramide HCl 5 MG ONCE ONE 10/18 2100 CAN PO 10/18 2101 Metronidazole 500 MG IQ8 10/19 1600 AC N/A 1 UNIT IV Morphine Sulfate 4 MG Q4P PRN 10/18 1530 AC 10/19 IV 0738 Multivitamins 1 TAB DAILY 10/19 1000 AC 10/19 Therapeutic PO 1028 Non-Formulary 0 SEE ADMIN CRITERIA 10/18 1545 DC Medication ANY Oxycodone/ 1 TAB Q6P PRN 10/18 1530 DC Acetaminophen PO Senna 187 MG AT BEDTIME 10/18 2200 AC 10/18 PO 2014 Tramadol HCl 50 MG Q6P PRN 10/18 1545 AC 10/19 PO 1028 Last 24 Hrs of Lab/Darrin Results Last 24 Hrs of Labs/Mics: Laboratory Tests 10/19/16 0646: Anion Gap 8, Estimated GFR > 60, BUN/Creatinine Ratio 10.0, Triglycerides 81, Cholesterol 144, LDL Cholesterol, Calc 94, HDL Cholesterol 34 L, Cholesterol/ HDL Ratio 4, CBC w Diff NO MAN DIFF REQ, RBC 4.35 L, MCV 88.1, MCH 29.7, RDW 12.9, MPV 6.9 L, Gran % 78.1 H, Lymphocytes % 15.5 L, Monocytes % 5.8, Eosinophils % 0.3, Basophils % 0.3, Absolute Granulocytes 10.1 H, Absolute Lymphocytes 2.0, Absolute Monocytes 0.7 H, Absolute Eosinophils 0, Absolute Basophils 0, PUBS MCHC 33.7 Assessment/Plan Assessment: Mr Ram is a 61-year-old gentleman with a PMH of osteoarthritis, chronic pain, torn left knee meniscus, torn left rotator cuff, previous history of thyroid nodule, left tibiofibular fracture who presents with complaints of abdominal pain after a recent diagnosis of diverticulitis.uncomplicated recurrent diverticulitis. Assessment and plan: Abdominal Pain: * Most likely recurrent acute diverticulitis. * Started on IV fluids and Clear liquids, advance as tolerated. * Patient has a history of hives secondary to cephalosporin. Patient declined pretreatment with Benadryl. Patient was started on clindamycin, Changed to Ciprofloxacin and Flagyl today. * Follow-up blood cultures for evidence of bacteremia. Negative so far. * If clinical worsening, will obtain lactic acid and consider repeat CT with contrast for possibility of abscess * Analgesia with 4 mg morphine IV Q4 PRN. * Senna, Colace as bowel regiment * Continue with Osteo Bi-Flex and Ultram for chronic osteoarthritis. DVT prophylaxis: Lovenox 40 mg subcutaneous daily Full code Problem List: 1. Diverticulitis Pain Ratin Pain Location: Left lower quadrant Pain Goal: Remain pain free Pain Plan: Pain pathway Tomorrow's Labs & Rationales: CBC(diverticulitis)
[2016-10-19 14:47] VITALS: BP 118/68
[2016-10-19 22:20] VITALS: BP 104/60
[2016-10-20 06:13] VITALS: BP 112/64
--- NOTE | 2016-10-20 07:22 | PN- Housestaff ---
Subjective Follow-up For: Pancreatitis Subjective: Patient was still complaining of pain and left lower quadrant tenderness. Has no appetite. Had 2 bowel movements yesterday which were liquidy. Denies any fever , nausea, vomiting, shortness of breat or overnight events. Review of Systems Constitutional: Reports: no symptoms. EENTM: Reports: no symptoms. Cardiovascular: Reports: no symptoms. Respiratory: Reports: no symptoms. Gastrointestinal: Reports: see HPI. Genitourinary: Reports: no symptoms. Musculoskeletal: Reports: no symptoms. Skin: Reports: no symptoms. Neurological/Psychological: Reports: no symptoms. Hematologic/Endocrine: Reports: no symptoms. Immunologic/Allergic: Reports: no symptoms. Objective Last 24 Hrs of Vital Signs/I&O Vital Signs Date Time Temp Pulse Resp B/P B/P Pulse O2 O2 Flow FiO2 Mean Ox Delivery Rate 10/20 0613 98.0 50 20 112/64 97 Room Air 10/19 2220 98.7 66 20 104/60 93 Room Air 10/19 1447 99.5 75 20 118/68 94 Room Air Intake & Output 10/20 1600 10/20 0800 10/20 0000 Intake Total 600 100 Output Total Balance 600 100 Intake, IV 600 100 Physical Exam General Appearance: Alert, Oriented X3, Cooperative Skin: No Rashes, No Breakdown Neck: Supple, No JVD, No thryomegaly Cardiovascular: Regular Rate, Normal S1, Normal S2, No Murmurs Lungs: Clear to Auscultation, Normal Air Movement Abdomen: Normal Bowel Sounds, Soft, No Hepatospenomegaly, No Masses, tenderness in left lower quadrant. Neurological: Normal Gait, Normal Speech, Strength at 5/5 X4 Ext, Normal Tone, Sensation Intact Extremities: No Clubbing, No Cyanosis, No Edema, Normal Pulses, No Tenderness/ Swelling Last 24 Hrs of Lab/Darrin Results Last 24 Hrs of Labs/Mics: Laboratory Tests 10/20/16 0844: CBC w Diff NO MAN DIFF REQ, RBC 4.25 L, MCV 88.1, MCH 29.8, RDW 12.4, MPV 7.0 L, Gran % 71.3, Lymphocytes % 19.2 L, Monocytes % 6.0, Eosinophils % 3.2, Basophils % 0.3, Absolute Granulocytes 7.4 H, Absolute Lymphocytes 2.0, Absolute Monocytes 0.6, Absolute Eosinophils 0.3, Absolute Basophils 0, PUBS MCHC 33.8 Microbiology 10/20 1200 STOOL: Clostridium difficile Toxin A & B - ORD Assessment/Plan Assessment: Mr Ram is a 61-year-old gentleman with a PMH of osteoarthritis, chronic pain, torn left knee meniscus, torn left rotator cuff, previous history of thyroid nodule, left tibiofibular fracture who presents with complaints of abdominal pain after a recent diagnosis of diverticulitis.uncomplicated recurrent diverticulitis. Assessment and plan: Abdominal Pain: * Most likely recurrent acute diverticulitis. * Started on IV fluids and Clear liquids, advance as tolerated. * Patient has a history of hives secondary to cephalosporin. Patient declined pretreatment with Benadryl. Patient was started on clindamycin, Changed to Ciprofloxacin and Flagyl today. * Follow-up blood cultures for evidence of bacteremia. Negative so far. * If clinical worsening, will obtain lactic acid and consider repeat CT with contrast for possibility of abscess * Analgesia with 4 mg morphine IV Q4 PRN. * Continue with Osteo Bi-Flex and Ultram for chronic osteoarthritis. * Patient has 2 soft bowel movements yesterday, denies any blood per rectum. Guaiac negative. Stool was sent for C. difficile toxin, we will follow. DVT prophylaxis: Lovenox 40 mg subcutaneous daily Full code Problem List: 1. Diverticulitis Pain Ratin Pain Location: Left lower quadrant Pain Goal: Remain pain free Pain Plan: Dilaudid Tomorrow's Labs & Rationales: CBC(diverticulitis), BEP(on Ringer lactate)
[2016-10-20 09:31] LABS: ABSOLUTE BASOPHIL COUNT 0 /CUMM (0.0-0.2); ABSOLUTE EOSINOPHIL COUNT 0.3 /CUMM (0.0-0.7); ABSOLUTE GRANULOCYTE CT 7.4 /CUMM (1.4-6.5); ABSOLUTE MONOCYTE COUNT 0.6 /CUMM (0.10-0.60); BASOPHIL % 0.3 % (0.0-2.0); EOSINOPHIL % 3.2 % (0-5); GRANULOCYTE % 71.3 % (42.2-75.2); HEMATOCRIT 37.4 % (42-52); MEAN CORPUSCULAR HGB 29.8 PG (27.0-31.0); MEAN CORPUSCULAR HGB CONC 33.8 G/DL (33.0-37.0); MEAN CORPUSCULAR VOLUME 88.1 FL (80.0-94.0); PLATELET COUNT 184 /CUMM (130-400); RBC DISTRIBUTION WIDTH 12.4 % (11.5-14.5); RED BLOOD CELL CT 4.25 /CUMM (4.70-6.10); WHITE BLOOD CELL COUNT 10.4 /CUMM (4.8-10.8)
[2016-10-20 15:14] VITALS: BP 122/70
--- NOTE | 2016-10-20 15:20 | Discharge Summary ---
Visit Information Visit Dates Admission Date: 10/18/16 Discharge Date: 10/22/16 Hospital Course Course Attending Physician: ARRON ORR,KANG Neal Primary Care Physician: PATIENT HAS NO PRIMARY CARE DR Hospital Course: Mr Ram is a 61-year-old gentleman with a PMH of osteoarthritis, chronic pain, torn left knee meniscus, torn left rotator cuff, previous history of thyroid nodule, left tibiofibular fracture who presents with complaints of abdominal pain after a recent diagnosis of diverticulitis. The patient was last seen at [place] [facility] on 10/11/2016 with complaints of lower abdominal/left lower quadrant stabbing pain, diagnosed with uncomplicated diverticulitis, started on Augmentin 875 mg PO BID which she has been compliant on. He also sees an orthopedic physician who started him on Ultram for joint pain on 10/14/2016. Since his previous ER visit, he reports being comfortable to go about his daily activities and work with minimal abdominal discomfort. He denies any fevers, chills, nausea, vomiting, diarrhea or bloody stools. He reports recurrence of abdominal pain on Monday afternoon similar nature localized around the LLQ, stabbing in nature, mild nausea, decreased appetite, pain worsened with movement, deep breathing and standing upright. He reports episodes of chills yesterday evening. VS on admission: BP 123/75, HR 92, RR 18, SPO2 96% on RA, T 96.3 Physical exam findings admission: Patient is alert and in mild discomfort. RRR, normal S1/S2 with a systolic murmur. Lungs CTA BL. Normal bowel sounds with tenderness to palpation of left lower quadrant greater than right lower quadrant , negative rebound. Pertinent labs at admission: WBC 13.9, H&H 13.9/30.8, 206K, sodium 136, potassium 3.8, bicarbonate 16, chloride 102, BUN/Cr 13/0.8 CT abdomen pelvis: Uncomplicated sigmoid diverticulitis is again noted with mildly increased inflammation when compared to the study one week ago. No fluid collection or free air. Simple renal cysts, unchanged. Patient was admitted to the general medicine floor and treated for following problems; Problem list: 1. Uncomplicated diverticulitis 2. Abdominal pain 3. Osteoarthritis Plan: Uncomplicated recurrent diverticulitis: Patient was made nothing by mouth and started on IV fluids. Diet was advanced as tolerated. Patient has a history of hives secondary to cephalosporin and declined pretreatment with Benadryl hence was started on clindamycin and Flagyl. Pain and nausea were controlled adequately. Blood cultures remain negative. Patient was also tested for C. difficile infection after having multiple episodes of loose stools which came back negative. Abdominal x-ray was done to rule out any obstruction or perforation. Patient was discharged home on ciprofloxacin and Flagyl for additional 7 days with instructions for outpatient follow-up with his PCP within a week. Osteoarthritis: Patient was continued on Osteo Bi-Flex and Ultram for chronic osteoarthritis. Patient was previously on aspirin 325 mg for many years for his joint pain, informed about the risk of gastric ulcers with chronic use of NSAIDs. DVT prophylaxis: Lovenox 40 mg subcutaneous daily. Patient is Full code. Allergies: Coded Allergies: cephalexin (From [employer]) (SEVERE ITCHY HIVES 10/18/16) Disposition Summary Disposition Principal Diagnosis: Diverticulitis Additional Diagnosis: Osteoarthritis Discharge Disposition: home or self care Discharge Instructions General Discharge Information Code Status: Full Code Patient's Diet: Regular Patient's Activity: As tolerated Follow-Up Instructions/Appts: Please follow up with your PCP within a week after discharge. To avoid drinking any alcoholic beverages while taking these medications. Please follow the dietary recommendations provided. Medications at Discharge Discharge Medications: Stop taking the following medications: Aspirin (Ecotrin*) 325 MG TABLET.DR ORAL DAILY Continue taking these medications: Tramadol HCl (Tramadol HCl) 50 MG TABLET 1 Tablet ORAL EVERY SIX HOURS NEEDED as needed for PAIN Qty = 30 Comments: Last Taken: 10/21/16 Time: 6:30 PM Multivitamin (Multi-Day Vitamins) 1 EACH TABLET 1 Tablet ORAL DAILY Comments: Last Taken: 10/22/16 Time: 10:00 AM Vitamin B Complex (Vitamin B Complex) 1 EACH CAPSULE 1 Capsule ORAL DAILY Comments: Last Taken: 10/22/16 Time: 10:00 AM Glucosamine HCl/Chondr Vásquez A Na (Osteo Bi-Flex Caplet) 250 MG-200 MG TABLET 1 Capsule ORAL DAILY Qty = 30 Comments: NOT GIVEN IN HOSPITAL Start taking the following new medications: Ergocalciferol (Vitamin D2) (Vitamin D2) 50,000 UNIT CAPSULE 1 Capsule ORAL Once a Week Qty = 8 No Refills Comments: NOT GIVEN IN HOSPITAL Ciprofloxacin HCl (Cipro) 500 MG TABLET 1 Tablet ORAL TWICE DAILY Qty = 14 No Refills Comments: Last Taken: 10/22/16 Time: 11:30 AM (IV DOSE GIVEN) Metronidazole (Flagyl) 500 MG TABLET 1 Tablet ORAL THREE TIMES DAILY Qty = 21 No Refills Comments: Last Taken: 10/22/16 Time: 10:00 AM Copies To: JOSE ALEJANDRO BELL MD
--- NOTE | 2016-10-20 17:07 | Patient Discharge Instructions ---
Discharge Instructions General Discharge Information You were seen/treated for: Diverticulitis Watch for these problems: Worsening abdominal pain, nausea, vomiting, diarrhea Special Instructions: Please follow up with your PCP within a week after discharge. To avoid drinking any alcoholic beverages while taking these medications. Please follow the dietary recommendations provided Diet Continue normal diet: Yes Activity Full Activity/No Limits: Yes Acute Coronary Syndrome Inclusion Criteria At DC or during hospital stay patient has or had the following: ACS DIAGNOSIS No Discharge Core Measures Meds if any: Prescribed or Continued at Discharge Meds if any: NOT Prescribed or Continued at Discharge Congestive Heart Failure Inclusion Criteria At DC or during hospital stay patient has or had the following: CHF DIAGNOSIS No Discharge Core Measures Meds if any: Prescribed or Continued at Discharge Meds if any: NOT Prescribed or Continued at Discharge Cerebrovascular accident Inclusion Criteria At DC or during hospital stay patient has or had the following: CVA/TIA Diagnosis No Discharge Core Measures Meds if any: Prescribed or Continued at Discharge Meds if any: NOT Prescribed or Continued at Discharge Venous thromboembolism Inclusion Criteria VTE Diagnosis No VTE Type NONE VTE Confirmed by (Test) NONE Discharge Core Measures - Per Current guidelines, there needs to be overlap - treatment for the first 5 days of Warfarin therapy. - If discharged on Warfarin prior to 5 days of - overlap therapy, the patient will need to be - assessed for post discharge needs including - *Post discharge parental anticoagulation - *Warfarin and/or parental anticoagulation education - *Follow up date to check INR post discharge At least 5 days overlap therapy as Inpatient No Meds if any: Prescribed or Continued at Discharge Note: Overlap Therapy is Warfarin and Anticoagulant Meds if any: NOT Prescribed or Continued at Discharge
--- NOTE | 2016-10-20 17:41 | PN- Att Addend ---
Attending MD Review Statement Attending Statement Attending MD Statement: examined this patient, discuss w/resident/PA/BUFFING WHEEL INSPECTOR, agreed w/resident/PA/BUFFING WHEEL INSPECTOR, reviewed EMR data (avail), discussed w/nursing Attending Assessment/Plan: Acute diverticulitis in pt with failed outpt treatment- on cipro and flagyl iv. some diarrhea- send stool for c diff. d/w pt the care plan. WBC improving but pt still has abdominal pain. On clear liquid diet this morning, will advance when pain becomes better.
[2016-10-20 22:37] VITALS: BP 126/62
[2016-10-21 06:51] VITALS: BP 110/62; BP 132/82
--- NOTE | 2016-10-21 07:25 | PN- Housestaff ---
See Addendum Subjective Follow-up For: Diverticulitis Subjective: Patient is complaining of abdominal pain but he thinks he can tolerate the patient and wants to be off of pain medications. Still reports anorexia, diarrhea and hasn't been able to eat well. Denies any fever, chills, shortness of breath or overnight events. Review of Systems Constitutional: Reports: no symptoms. EENTM: Reports: no symptoms. Cardiovascular: Reports: no symptoms. Respiratory: Reports: no symptoms. Gastrointestinal: Reports: see HPI. Genitourinary: Reports: no symptoms. Musculoskeletal: Reports: no symptoms. Skin: Reports: no symptoms. Neurological/Psychological: Reports: no symptoms. Hematologic/Endocrine: Reports: no symptoms. Immunologic/Allergic: Reports: no symptoms. Objective Last 24 Hrs of Vital Signs/I&O Vital Signs Date Time Temp Pulse Resp B/P B/P Pulse O2 O2 Flow FiO2 Mean Ox Delivery Rate 10/21 1522 98.4 65 16 118/58 95 Room Air 10/21 0651 97.9 62 20 110/62 94 Room Air 10/20 2237 98.1 66 20 126/62 94 Room Air Intake & Output 10/21 1600 10/21 0800 10/21 0000 Intake Total 800 800 Output Total Balance 800 800 Intake, IV 800 800 Physical Exam General Appearance: Alert, Oriented X3, Cooperative Skin: No Rashes, No Breakdown HEENT: Atraumatic, PERRLA, EOMI, Mucous Membr. moist/pink Cardiovascular: Regular Rate, Normal S1, Normal S2, No Murmurs Lungs: Clear to Auscultation, Normal Air Movement Abdomen: Soft, No Tenderness, No Hepatospenomegaly, No Masses, tenderness in left lower quadrant. Neurological: Normal Gait, Normal Speech, Strength at 5/5 X4 Ext, Normal Tone, Sensation Intact, Cranial Nerves 3-12 NL, Reflexes 2+ Extremities: No Clubbing, No Cyanosis, No Edema, Normal Pulses, No Tenderness/ Swelling Assessment/Plan Assessment: Mr Ram is a 61-year-old gentleman with a PMH of osteoarthritis, chronic pain, torn left knee meniscus, torn left rotator cuff, previous history of thyroid nodule, left tibiofibular fracture who presents with complaints of abdominal pain after a recent diagnosis of diverticulitis.uncomplicated recurrent diverticulitis. Assessment and plan: Abdominal Pain: * Most likely recurrent acute diverticulitis. * Patient has a history of hives secondary to cephalosporin. Patient declined pretreatment with Benadryl. Patient was started on clindamycin later Changed to Ciprofloxacin and Flagyl. * Patient has been afebrile and his white count has come down, but he still complains of abdominal pain, anorexia and diarrhea. Patient was started on a regular diet but hasn't been able to tolerate any food. States he gets diarrhea after eating. Stools are Guaiac negative and negative for C. difficile toxin. Will obtain lactic acid, if high will consider repeat CT with contrast for possibility of abscess. We will also obtain an abdominal x-ray to rule out any perforation(unresolving abdominal pain.) * Follow-up blood cultures for evidence of bacteremia. Negative so far. * Analgesia with 4 mg morphine IV Q4 PRN. * Continue with Osteo Bi-Flex and Ultram for chronic osteoarthritis. DVT prophylaxis: Lovenox 40 mg subcutaneous daily Full code Problem List: 1. Diverticulitis Pain Ratin Pain Location: Left Lower Quadrant Pain Goal: Remain pain free Pain Plan: Pain pathway Tomorrow's Labs & Rationales: CBC(Diverticulitis)
[2016-10-21 08:28] LABS: ABSOLUTE BASOPHIL COUNT 0 /CUMM (0.0-0.2); ABSOLUTE EOSINOPHIL COUNT 0.3 /CUMM (0.0-0.7); ABSOLUTE GRANULOCYTE CT 4.7 /CUMM (1.4-6.5); ABSOLUTE LYMPH COUNT 1.8 /CUMM (1.2-3.4); ABSOLUTE MONOCYTE COUNT 0.5 /CUMM (0.10-0.60); BASOPHIL % 0.3 % (0.0-2.0); EOSINOPHIL % 4.3 % (0-5); GRANULOCYTE % 64.1 % (42.2-75.2); MEAN CORPUSCULAR HGB 30.1 PG (27.0-31.0); MEAN CORPUSCULAR HGB CONC 34.5 G/DL (33.0-37.0); MEAN CORPUSCULAR VOLUME 87.5 FL (80.0-94.0); MEAN PLATELET VOLUME 6.5 FL (7.4-10.4); PLATELET COUNT 182 /CUMM (130-400); RBC DISTRIBUTION WIDTH 12.4 % (11.5-14.5); WHITE BLOOD CELL COUNT 7.3 /CUMM (4.8-10.8)
[2016-10-21 15:22] VITALS: BP 118/58
--- NOTE | 2016-10-21 16:16 | RADIOLOGY REPORT ---
EXAMINATION: XR PORTABLE ABDOMEN CLINICAL INFORMATION: Persistent abdominal pain, diarrhea, fevers COMPARISON: CT 10/18/2016 TECHNIQUE: AP view of the abdomen. FINDINGS: Nonspecific and nonobstructive bowel gas pattern. No dilated loops of bowel to suggest obstruction. No radiopaque foreign bodies. No abnormal calcifications. Osseous structures unremarkable. Limited views of the lung bases demonstrate unchanged right hemidiaphragm elevation. IMPRESSION: Nonspecific and nonobstructive bowel gas pattern.
[2016-10-21 16:33] LABS: PT 14.1 SEC (9.4-12.5)
[2016-10-21] MEDS ORDERED: FLAGYL500 MG PO (18:52)
[2016-10-21] MEDS ORDERED: VITAMIN D250000 UNIT PO (18:52)
[2016-10-21] MEDS ORDERED: CIPRO500 M1 PO (18:52)
[2016-10-21 21:56] VITALS: BP 110/72
[2016-10-22 06:42] VITALS: BP 146/74
--- NOTE | 2016-10-22 07:41 | PN- Housestaff ---
Subjective Follow-up For: Diverticulitis Subjective: Patient reports improvement in abdominal pain and diarrhea. Has been able to tolerate some food as well. Denies any fever, chills, nausea, vomiting, shortness of breath overnight events. Review of Systems Constitutional: Reports: no symptoms. EENTM: Reports: no symptoms. Cardiovascular: Reports: no symptoms. Respiratory: Reports: no symptoms. Gastrointestinal: Reports: see HPI. Genitourinary: Reports: no symptoms. Musculoskeletal: Reports: no symptoms. Skin: Reports: no symptoms. Neurological/Psychological: Reports: no symptoms. Hematologic/Endocrine: Reports: no symptoms. Immunologic/Allergic: Reports: no symptoms. Objective Last 24 Hrs of Vital Signs/I&O Vital Signs Date Time Temp Pulse Resp B/P B/P Pulse O2 O2 Flow FiO2 Mean Ox Delivery Rate 10/22 0642 97.9 62 20 146/74 93 10/21 2156 97.7 64 18 110/72 94 10/21 1522 98.4 65 16 118/58 95 Room Air Intake & Output 10/22 1600 10/22 0800 10/22 0000 Intake Total 1040 640 Output Total Balance 1040 640 Intake, IV 800 300 Intake, Oral 240 340 Physical Exam General Appearance: Alert, Oriented X3, Cooperative HEENT: Atraumatic, PERRLA, EOMI, Mucous Membr. moist/pink Cardiovascular: Regular Rate, Normal S1, Normal S2, No Murmurs Lungs: Clear to Auscultation, Normal Air Movement Abdomen: Normal Bowel Sounds, Soft, No Hepatospenomegaly, No Masses, Tenderness in LLQ Neurological: Normal Gait, Normal Speech, Strength at 5/5 X4 Ext, Normal Tone Current Medications: Current Medications Sig/[place] Start time Last Medication Dose Route Stop Time Status Admin Acetaminophen 650 MG Q6P PRN 10/18 1530 DCD PO Bisacodyl 5 MG DAILY 10/19 1000 DCD 10/19 PO 1028 Ciprofloxacin 400 MG Q12H 10/21 2359 DCD 10/22 Dextrose/Water 200 ML IV 1112 Cyanocobalamin 1,000 MCG DAILY 10/19 1000 DCD 10/22 PO 0951 Dextrose/Sodium 1,000 ML Q13H 10/18 1600 DCD 10/22 Chloride IV 0952 Docusate Sodium 100 MG BID 10/18 1540 DCD 10/20 PO 1100 Enoxaparin Sodium 40 MG DAILY 10/18 1527 DCD 10/22 SC 0951 Famotidine 20 MG BID 10/21 1020 DCD 10/22 PO 0951 Metoclopramide HCl 10 MG .STK-MED ONE 10/22 0051 DC IM 10/22 0052 Metoclopramide HCl 10 MG Q6P PRN 10/19 0715 DCD 10/22 IV 0050 Metronidazole 500 MG 1800,0200,1000 10/20 1800 DCD 10/22 N/A 1 UNIT IV 0951 Morphine Sulfate 4 MG Q4P PRN 10/18 1530 DCD 10/21 IV 0103 Multivitamins 1 TAB DAILY 10/19 1000 DCD 10/22 Therapeutic PO 0951 Senna 187 MG AT BEDTIME 10/18 2200 DCD 10/19 PO 2319 Tramadol HCl 50 MG Q6P PRN 10/18 1545 DCD 10/20 PO 1838 Assessment/Plan Assessment: Mr Ram is a 61-year-old gentleman with a PMH of osteoarthritis, chronic pain, torn left knee meniscus, torn left rotator cuff, previous history of thyroid nodule, left tibiofibular fracture who presents with complaints of abdominal pain after a recent diagnosis of diverticulitis.uncomplicated recurrent diverticulitis. Assessment and plan: Patient stable for discharge. Abdominal Pain: * Most likely recurrent acute diverticulitis. * Patient has a history of hives secondary to cephalosporin. Patient declined pretreatment with Benadryl. Patient was started on clindamycin later Changed to Ciprofloxacin and Flagyl. * Patient has been afebrile and his white count has come down, but he still complains of abdominal pain, anorexia and diarrhea. Patient was started on a regular diet but hasn't been able to tolerate any food. States he gets diarrhea after eating. Stools are Guaiac negative and negative for C. difficile toxin. CT abdomen and pelvis were normal. Abdominal x-ray was done to rule out any perforation. * Follow-up blood cultures for evidence of bacteremia. Negative so far. * Analgesia with 4 mg morphine IV Q4 PRN. * Continue with Osteo Bi-Flex and Ultram for chronic osteoarthritis. DVT prophylaxis: Lovenox 40 mg subcutaneous daily Full code Problem List: 1. Diverticulitis Pain Ratin Pain Location: Left lower quadrant Pain Goal: Remain pain free Pain Plan: Pain pathway Tomorrow's Labs & Rationales: None
[2016-10-22] MEDS ORDERED: ASPIRIN EC325 M2 PO (10:47)
== END 2016-10-22 14:00 | DRG 392 ==
LOC: ERH 11:02 → ERHI 13:40 → 2NB 13:40 → ENRESERV 15:28 → ENTRNSPT 16:06 → 2NB 16:13 → CMPTRNSPT 16:22 → 2NB 18:19 → ENPENDDIS 10-22 13:45 → 2NB 10-22 14:00
PROVIDERS: Internal Medicine; Student in an Organized Health Care Education/Training Program; ADMIT Internal Medicine
DX: K57.32 Diverticulitis of large intestine without perforation or abscess without bleeding (principal); M19.90 Unspecified osteoarthritis, unspecified site
CPT/HCPCS: 2NBP; 36415; 74000; 74177; 81003; 82436; 87040; 96374; 96375; J0744; J1650; J1885; J2765; J7042; J7060